=== PATIENT | female | born 1970 | race Caucasian/White ===

== ENCOUNTER 2018-08-12 15:39 | Inpatient (IN) | payer OTHER ==
[~2018-08-12] VITALS: Ht 157.5 cm; Wt 69.9 kg
[2018-08-12 15:40] VITALS: BP_SYST 155
[2018-08-12 16:59] LABS: BILIRUBIN,URINE 2+ (NEGATIVE); BLOOD, URINE NEGATIVE (NEGATIVE); CLARITY/URINE CLEAR (CLEAR); COLOR,URINE YELLOW (YELLOW); GLUCOSE,URINE NEGATIVE (NEGATIVE); KETONES,URINE 3+ (NEGATIVE); LEUKOCYTE ESTERASE ,URINE 1+ (NEGATIVE); NITRITE, URINE NEGATIVE (NEGATIVE); PROTEIN URINE 1+ (NEGATIVE)
[2018-08-12 17:08] LABS: BACTERIA,URINE MODERATE /HPF (None Seen); MUCUS,URINE 3+ /LPF (None Seen)
[2018-08-12 17:31] LABS: BARBITURATE, URINE NEGATIVE (NEG <=200); BENZODIAZEPINE, URINE POSITIVE (NEG <=150); CANNABINOID, URINE NEGATIVE (NEG <=50); COCAINE, URINE NEGATIVE (NEG <=150); METHAMPHETAMINES SCREEN,URINE NEGATIVE (NEG <=500); OPIATE, URINE NEGATIVE (NEG <=100); PHENCYCLIDINE SCREEN,URINE NEGATIVE (NEG <=25); UR TRICYCLIC ANTIDEPRESSANTS NEGATIVE (NEG <=300); URINE AMPHETAMINE NEGATIVE (NEG <=500); URINE METHADONE NEGATIVE (NEG <=200); URINE OXYCODONE SCREEN NEGATIVE (NEG <=100); URINE PROPOXYPHENE SCREEN NEGATIVE (NEG <=300)
[2018-08-12 17:44] LABS: ANION GAP 10 (5-15); CALCIUM 9.2 mg/dL (8.4-11.0); CHLORIDE 101 mmol/L (98-107); CREATININE 0.79 mg/dL (0.55-1.30); GLUCOSE 90 mg/dL (70-99); POTASSIUM 4.1 mmol/L (3.5-5.1); SODIUM SERUM 136 mmol/L (136-145); UREA NITROGEN, BLOOD 19 mg/dL (8-21)
[2018-08-12 17:45] LABS: GFR AFRICAN AMERICAN 99 mL/min (>90)
[2018-08-12 17:46] LABS: HEMATOCRIT 47.3 % (36-48); MEAN CORPUSCULAR HEMOGLOBIN 31 pg (27-31); MEAN CORPUSCULAR HGB CONC 34 % (32-36); MEAN CORPUSCULAR VOLUME 92 fL (79.0-98.0); RED BLOOD CELL COUNT(AUTO) 5.17 MIL/uL (4.2-6.2); WHITE BLOOD COUNT (AUTO) 9.7 K/uL (4.8-10.8)
[2018-08-12 17:47] LABS: BASOPHILS % (AUTO) 0.4 % (0.0-2.0); EOSINOPHILS % (AUTO) 0.3 % (0.0-4.0); LYMPHOCYTES # (AUTO) 1.6 K/uL (1.0-5.5); LYMPHOCYTES % (AUTO) 16.7 % (20.5-51.5); MONOCYTES # (AUTO) 0.8 K/uL (0.0-1.0); MONOCYTES % (AUTO) 8.4 % (1.7-9.3); NEUTROPHILS # (AUTO) 7.2 K/uL (1.8-7.7); NEUTROPHILS % (AUTO) 74.2 % (40.0-70.0); PLATELET COUNT (AUTO) 288 K/uL (130-430); RED CELL DISTRIBUTION WIDTH 13.3 % (9.0-15.0)
[2018-08-12 17:48] LABS: PROTHROMBIN TIME 9.9 SECS (9.5-12.5)
[2018-08-12 17:49] LABS: ALANINE AMINOTRANSFERASE 34 U/L (12-78); ALBUMIN 4.2 g/dL (3.4-4.8); ASPARTATE AMINOTRANSFERASE 20 U/L (10-37); TOTAL BILIRUBIN 0.6 mg/dL (0.0-1.0)
[2018-08-12 17:50] LABS: ALCOHOL, BLOOD < 3 mg/dL (<10)
[2018-08-12] MEDS ORDERED: CIPROFLOXACIN HCL 500 MG TABLET PO ONE ×2 (19:45→23:00)
[2018-08-12] MEDS ORDERED: ACETAMINOPHEN 325 MG TABLET PO PRN (21:30)
[2018-08-12] MEDS ORDERED: ZOLP10TA2 PO (21:32)
[2018-08-12 22:23] VITALS: BP_SYST 137
[2018-08-13 04:45] VITALS: BP_SYST 138
[2018-08-13 07:42] LABS: BASOPHILS % (AUTO) 0.1 % (0.0-2.0); EOSINOPHILS # (AUTO) 0.4 K/uL (0.0-0.4); EOSINOPHILS % (AUTO) 3.5 % (0.0-4.0); HEMATOCRIT 45.8 % (36-48); HEMOGLOBIN 15.3 g/dL (12.0-16.0); LYMPHOCYTES # (AUTO) 1.4 K/uL (1.0-5.5); LYMPHOCYTES % (AUTO) 13.3 % (20.5-51.5); MEAN CORPUSCULAR HEMOGLOBIN 30 pg (27-31); MEAN CORPUSCULAR HGB CONC 33 % (32-36); MEAN CORPUSCULAR VOLUME 91 fL (79.0-98.0); MONOCYTES # (AUTO) 0.7 K/uL (0.0-1.0); MONOCYTES % (AUTO) 6.2 % (1.7-9.3); NEUTROPHILS # (AUTO) 8.3 K/uL (1.8-7.7); NEUTROPHILS % (AUTO) 76.9 % (40.0-70.0); RED BLOOD CELL COUNT(AUTO) 5.04 MIL/uL (4.2-6.2); RED CELL DISTRIBUTION WIDTH 12.7 % (9.0-15.0); WHITE BLOOD COUNT (AUTO) 10.8 K/uL (4.8-10.8)
[2018-08-13 07:44] LABS: CALCIUM 8.9 mg/dL (8.4-11.0); CREATININE 0.65 mg/dL (0.55-1.30); POTASSIUM 3.8 mmol/L (3.5-5.1); THYROID STIMULATING HORMONE 0.71 uIu/mL (0.34-4.82)
[2018-08-13 08:39] VITALS: BP_SYST 142
[2018-08-13] MEDS: FAMOTIDINE 20 MG TABLET PO SCH (09:17)
[2018-08-13] MEDS: CIPROFLOXACIN HCL 500 MG TABLET PO SCH ×2 (09:18→21:22)
[2018-08-13 10:01] LABS: PLATELET COUNT (AUTO) 307 K/uL (130-430)
[2018-08-13 12:15] VITALS: BP_SYST 117
[2018-08-13 16:28] VITALS: BP_SYST 119
[2018-08-13 19:00] VITALS: BP_SYST 122
[2018-08-13] MEDS ORDERED: LORazepam 2 MG/ML VIAL IVP ONE ×2 (19:45→20:00)
[2018-08-13 20:00] VITALS: BP_SYST 122
[2018-08-13] MEDS ORDERED: LORazepam 2 MG/ML VIAL IVP PRN (20:00)
[2018-08-13] MEDS ORDERED: LORazepam 2 MG/ML VIAL ONE (20:06)
[2018-08-13] MEDS: KCL 20 mEq in D5/0.45NS 1000mL 1,000 ML IV SCH (23:22)
[2018-08-13] MEDS ORDERED: CIPROFLOXACIN LACT 400 MG/D5W 200 ML IV ONE ×2 (23:30→23:45)
[2018-08-14 08:00] VITALS: BP_SYST 136
[2018-08-14] MEDS: CIPROFLOXACIN HCL 500 MG TABLET PO SCH ×2 (09:07→22:54)
[2018-08-14] MEDS: FAMOTIDINE 20 MG TABLET PO SCH (09:07)
[2018-08-14] MEDS: KCL 20 mEq in D5/0.45NS 1000mL 1,000 ML IV SCH ×2 (11:45→19:22)
[2018-08-14 13:08] VITALS: BP_SYST 126
[2018-08-14 17:09] VITALS: BP_SYST 130
[2018-08-14 20:00] VITALS: BP_SYST 115
[2018-08-15 00:36] VITALS: BP_SYST 110
[2018-08-15 07:45] VITALS: BP_SYST 130
[2018-08-15] MEDS: FLUoxetine HCL 20 MG CAPSULE (PROzac) PO SCH (08:06)
[2018-08-15] MEDS: ARIPiprazole 5 MG TAB PO SCH (08:06)
[2018-08-15] MEDS: FAMOTIDINE 20 MG TABLET PO SCH (08:06)
[2018-08-15] MEDS: CIPROFLOXACIN HCL 500 MG TABLET PO SCH ×2 (10:00→21:44)
[2018-08-15 11:28] VITALS: BP_SYST 121
[2018-08-15 15:22] VITALS: BP_SYST 126
[2018-08-15 19:45] VITALS: BP_SYST 116
[2018-08-16 00:02] VITALS: BP_SYST 118
[2018-08-16 08:00] VITALS: BP_SYST 156
[2018-08-16] MEDS: FLUoxetine HCL 20 MG CAPSULE (PROzac) PO SCH (09:13)
[2018-08-16] MEDS: FAMOTIDINE 20 MG TABLET PO SCH (09:13)
[2018-08-16] MEDS: ARIPiprazole 5 MG TAB PO SCH (09:13)
[2018-08-16] MEDS: CIPROFLOXACIN HCL 500 MG TABLET PO SCH ×2 (09:13→21:00)
[2018-08-16 12:29] VITALS: BP_SYST 132
[2018-08-16 15:47] VITALS: BP_SYST 136
[2018-08-16 22:30] VITALS: BP_SYST 137
[2018-08-17 04:00] VITALS: BP_SYST 132
[2018-08-17 08:00] VITALS: BP_SYST 117
[2018-08-17] MEDS: ARIPiprazole 5 MG TAB PO SCH (10:02)
[2018-08-17] MEDS: CIPROFLOXACIN HCL 500 MG TABLET PO SCH ×2 (10:02→21:29)
[2018-08-17] MEDS: FLUoxetine HCL 20 MG CAPSULE (PROzac) PO SCH (10:02)
[2018-08-17] MEDS: FAMOTIDINE 20 MG TABLET PO SCH (10:02)
[2018-08-17 11:31] VITALS: BP_SYST 134
[2018-08-17 16:02] VITALS: BP_SYST 133
[2018-08-17 20:00] VITALS: BP_SYST 117
[2018-08-18] VITALS: BP_SYST 138
[2018-08-18 07:50] VITALS: BP_SYST 131
[2018-08-18] MEDS: CIPROFLOXACIN HCL 500 MG TABLET PO SCH (10:03)
[2018-08-18] MEDS: FLUoxetine HCL 20 MG CAPSULE (PROzac) PO SCH (10:03)
[2018-08-18] MEDS: ARIPiprazole 5 MG TAB PO SCH (10:03)
[2018-08-18] MEDS: FAMOTIDINE 20 MG TABLET PO SCH (10:03)
[2018-08-18 11:34] VITALS: BP_SYST 108
[2018-08-18 15:48] VITALS: BP_SYST 130
[2018-08-18 16:40] VITALS: BP_SYST 135
== END 2018-08-18 17:08 | disposition home or self-care (01) | DRG 885 ==
LOC: SED 15:39 → STU 21:09 → SMU 08-15 21:26
PROVIDERS: ADMIT Internal Medicine; ATTEND Internal Medicine
DX: F25.1 Schizoaffective disorder, depressive type (principal); N39.0 Urinary tract infection, site not specified; M54.2 Cervicalgia; V49.9XXA Car occupant (driver) (passenger) injured in unspecified traffic accident, initial encounter; Y93.89 Activity, other specified; Y92.89 Other specified places as the place of occurrence of the external cause; Y99.8 Other external cause status; Z59.9 Problem related to housing and economic circumstances, unspecified
CPT/HCPCS: 36415; 70450-TC; 71045; 72050-TC; 80048; 80053; 80307; 81000-TC; 81025; 82140-TC; 84443-TC; 84484; 85025; 85610-TC; 85730-TC; 87086; 93005; 99285; G0378; G0482; J0744; J2060